=== PATIENT | female | born 1975 | race Hispanic/Latino ===

== ENCOUNTER 2017-08-27 08:43 | Outpatient (CLI) | payer OTHER ==
--- NOTE | 2017-08-27 10:28 | CT ---
CT ABDOMEN AND PELVIS WITH IV AND ORAL CONTRATS: HISTORY: Abdominal pain. COMPARISON: 07/09/12. FINDINGS: Lung bases are clear. The spleen, kidneys, adrenal glands, liver, and pancreas are within normal miranda its. Reactive-appearing lymph nodes are present throughout the retroperitoneum and central mesentery . Urinary bladder is incompletely distended. Follicles arise from each ovary. Degenerative changes lumbar spine. IMPRESSION: No significant abnormalities are demonstrated. POS: [facility]
== END 2017-08-27 08:44 | disposition home or self-care (01) ==
LOC: SCSCT 08:43
PROVIDERS: ATTEND Family Medicine
DX: R19.00 Intra-abdominal and pelvic swelling, mass and lump, unspecified site (principal)
CPT/HCPCS: 74177

== ENCOUNTER 2017-11-12 15:05 | Emergency (ER) | payer OTHER ==
[2017-11-12] MEDS ORDERED: Clindamycin 300 MG/2 ML VIAL ONE (15:21)
== END 2017-11-12 15:40 | disposition home or self-care (01) ==
LOC: SCSER 15:05
DX: H65.03 Acute serous otitis media, bilateral (principal); F41.9 Anxiety disorder, unspecified; F32.9 Major depressive disorder, single episode, unspecified; F17.210 Nicotine dependence, cigarettes, uncomplicated
CPT/HCPCS: 96372; J3490

== ENCOUNTER 2018-01-06 12:57 | Outpatient (CLI) | payer OTHER ==
--- NOTE | 2018-01-06 15:56 | MMO ---
BILATERAL SCREENING MAMMOGRAM: Date: 01/06/18 VIEWS: Bilateral CC and MLO. COMPARISON: 01/15/12. FINDINGS: This patient's mammogram was interpreted with the assistance of computer-aided detection. The breast parenchyma is comprised of heterogeneously dense tissue which may limit the sensitivity of mammography. There is questioned architectural distortion involving the posterior aspect of the cent ral left breast on the MLO view. IMPRESSION: BIRADS 0: Incomplete: Need Additional Imaging Evaluation and/or Prior Mammograms for Comparison Diagnostic left mammography is recommended. Ultrasound may prove useful at recall. The facility will notify patient of need for additional imaging services. POS: [facility]
== END 2018-01-06 12:58 | disposition home or self-care (01) ==
LOC: SCSMAMMO 12:57
PROVIDERS: ATTEND Family Medicine
DX: Z12.31 Encounter for screening mammogram for malignant neoplasm of breast (principal)
CPT/HCPCS: 77067

== ENCOUNTER 2018-01-11 12:47 | Outpatient (CLI) | payer OTHER | END 2018-01-11 12:48 | disposition home or self-care (01) | LOC: BICMAMMO 12:47 | PROVIDERS: ATTEND Family Medicine | DX: R92.2 Inconclusive mammogram (principal); Z80.3 Family history of malignant neoplasm of breast | CPT/HCPCS: G0279 ==

== ENCOUNTER 2018-09-17 19:53 | Emergency (ER) | payer OTHER ==
[2018-09-17] MEDS ORDERED: Albuterol Sulfate 2.5 mg/0.5 ml Neb ONE (20:21)
--- NOTE | 2018-09-17 20:42 | RAD ---
TWO VIEWS CHEST: 09/17/18 HISTORY: Cough and fever. Lung henderson appear clear. Heart and mediastinum unremarkable. IMPRESSION: No acute abnormality. POS: [facility]
[2018-09-17] MEDS ORDERED: Ondansetron ODT 4 MG TAB ONE (20:55)
== END 2018-09-17 21:32 | disposition home or self-care (01) ==
LOC: SCSER 19:53
DX: J20.9 Acute bronchitis, unspecified (principal); F17.210 Nicotine dependence, cigarettes, uncomplicated; R11.10 Vomiting, unspecified; F41.9 Anxiety disorder, unspecified; F32.9 Major depressive disorder, single episode, unspecified
CPT/HCPCS: 71046; 94640; J7611; J7620; Q0162

== ENCOUNTER 2018-12-04 12:39 | Emergency (ER) | payer OTHER ==
[~2018-12-04 12:39] MED LIST: Iopamidol 370 76% 100 ML VIAL ONE
[2018-12-04] MEDS ORDERED: Nitroglycerin 0.4 MG TAB (25 Tab Bottle) ONE (13:38)
[2018-12-04] MEDS ORDERED: Aspirin Chewable 81 MG TAB ONE (13:38)
[2018-12-04 13:39] LABS: #Lymphocytes 0.7 thou/uL (1.20-3.40); #Monocytes 0.7 thou/uL (0.11-0.59); #Neutrophils 5.6 thou/uL (1.40-6.50); %Basophils 0.4 % (0.0-1.0); %Eosinophils 0.4 % (0.0-10.0); %Lymphocytes 9.7 % (21.0-51.0); %Monocytes 10.2 % (0.0-10.0); %Neutrophils 79.3 % (42.0-75.0); Hemoglobin 12.9 g/dL (12.0-16.0); Mean Corpuscular HGB CONC 33.6 g/dL (32.0-36.0); Mean Corpuscular Hemoglobin 31.4 pg (27.0-31.0); Mean Corpuscular Volume 93.3 fL (78.0-98.0); Mean Platelet Volume 7.5 fL (7.4-10.4); Platelet Count 148 thou/uL (130-400); RBC Distribution Width 13.4 % (11.5-14.5); Red Blood Cell (RBC) Count 4.11 mill/uL (4.20-5.40); White Blood Cell (WBC) Count 7.1 thou/uL (4.8-10.8)
[2018-12-04] MEDS ORDERED: Nitroglycerin 2% Ointment 1 INCH/1 GM Packet ONE (13:41)
[2018-12-04] MEDS ORDERED: cefTRIAXone\\ROCEPHIN 2 GM VIAL ONE (13:57)
[2018-12-04] MEDS ORDERED: Sodium Chloride 0.9% 100 ML ONE (13:57)
[2018-12-04 13:58] LABS: ALT (SGPT) 17 U/L (8-55); AST (SGOT) 16 U/L (5-34); Albumin 3.8 g/dL (3.5-5.0); Alkaline Phosphatase 34 U/L (40-150); Anion Gap 12 mmol/L (10-20); BUN (Urea Nitrogen) 12 mg/dL (7.0-18.7); Bilirubin, Total 0.9 mg/dL (0.2-1.2); CK (CPK) 62 U/L (29-168); Calc. Creatinine Clearance 0 mL/min (70-130); Carbon Dioxide 23 mmol/L (22-29); Chloride 106 mmol/L (98-107); Estimated GFR-MDRD 85; Globulin 3.9 g/dL (2.4-3.5); Glucose 89 mg/dL (70-105); Lipase 15 U/L (8-78); Potassium 3.4 mmol/L (3.5-5.1); Protein, Total 7.7 g/dL (6.0-8.3); Sodium 138 mmol/L (136-145)
--- NOTE | 2018-12-04 14:05 | RAD ---
FRONTAL RADIOGRAPH CHEST: Date: 12/04/18 COMPARISON: 09/17/18. HISTORY: Chest pain. FINDINGS: No pneumothorax or pleural fluid. No lobar consolidation or alveolar edema. There is mild increased linear interstitial density noted within both lung bases which could signify volume loss, scar, or infiltrate. IMPRESSION: Minimal bilateral lower lobe streaky opacity likely on the basis of volume loss. No focal consolidati on or alveolar edema. POS: [facility]
[2018-12-04 14:32] LABS: BHCG - Serum Negative (NEGATIVE); Pregs Control Background? CLEAR/WHITE (CLR/WHITE); Pregs Control Bar Appear? YES (CONTROL BAR)
--- NOTE | 2018-12-04 14:51 | CT ---
EXAM: CT angiogram of the chest including 3-D rendering: HISTORY: Chest pain COMPARISON: None FINDINGS: There is adequate opacification of the pulmonary arteries. No evidence for aortic aneurysm or dissection. No convincing CT evidence for acute pulmonary embolism. Scattered groundglass opacity changes mostly in the mid and lower lung zones, nonspecific possibly mi ld acute vascular congestion with some linear and interstitial parenchymal changes, primarily pleural-based, in the lower lobes and mid lung zone regions bilaterally evidence for subsegmental ate lectasis versus mild pneumonitis. Minimally enlarged axillary lymph nodes more so on the right side with short axis node measuring up t o 1.4 cm in size No evidence for mediastinal mass or adenopathy. No evidence for pleural or pericardial effusion. Small hiatal hernia. IMPRESSION: No convincing CT evidence for acute pulmonary embolism. Evidence for bilateral vascular congestion, scattered groundglass opacity changes, small pleural effu sions, and linear stranding bilaterally probably some component of bilateral subsegmental atelectasis versus mild pneumonitis. Minimal axillary adenopathy particularly on the right. Small hiatal hernia. Other findings as above.
== END 2018-12-04 17:30 | disposition home or self-care (01) ==
LOC: SCSER 12:39
DX: R07.9 Chest pain, unspecified (principal); F41.9 Anxiety disorder, unspecified; F32.9 Major depressive disorder, single episode, unspecified; F17.210 Nicotine dependence, cigarettes, uncomplicated
CPT/HCPCS: 71045; 71275; 80053; 82550; 83690; 83880; 84484; 84703; 85025; 85379; 93005; 94760; J0696; J3490; Q9967